=== PATIENT | female | born 1990 | race Two or more races ===

== ENCOUNTER 2017-07-22 12:51 | Emergency (ER) | payer MEDICAID ==
[~2017-07-22] VITALS: Ht 160 cm; Wt 72.6 kg
[2017-07-22] MEDS ORDERED: IBUPROFEN 600 MG TAB PO ONE (13:30)
[2017-07-22 13:33] VITALS: BP 109/82
[2017-07-22] MEDS ORDERED: HYDROcodone-ACET 10/325MG TAB PO ONE (14:15)
== END 2017-07-22 15:28 | disposition home or self-care (01) ==
LOC: ER 12:51
DX: S92.902A Unspecified fracture of left foot, initial encounter for closed fracture (principal); X50.1XXA Overexertion from prolonged static or awkward postures, initial encounter; Y93.89 Activity, other specified; Y99.8 Other external cause status; Y92.89 Other specified places as the place of occurrence of the external cause
CPT/HCPCS: 29515; 73630